=== PATIENT | female | born 1995 | race Caucasian/White ===

== ENCOUNTER 2025-03-01 06:00 | Emergency (ER) | payer SELFPAY ==
[~2025-03-01] VITALS: Ht 157.5 cm; Wt 58.0 kg
[2025-03-01 06:09] VITALS: TEMP 37.1; O2SAT 98
[2025-03-01] MEDS: IBUPROFEN 600MG TABLET PO ONE (07:41)
[2025-03-01] MEDS: HYDROCODONE/ACETAMINOPHEN 5/325MG TABLET PO ONE (07:41)
[2025-03-01] MEDS ORDERED: HYDR-4001 MT (07:58)
[2025-03-01] MEDS ORDERED: IBUP-1523 MT (07:58)
[2025-03-01 08:15] VITALS: BP 133/78; PULSE 82; RESP 18; O2SAT 100
== END 2025-03-01 08:15 | disposition home or self-care (01) ==
LOC: ER 06:00
DX: M62.838 Other muscle spasm (principal)
CPT/HCPCS: 81025; 99283